=== PATIENT | female | born 1980 | race Two or more races ===

== ENCOUNTER 2023-06-09 08:08 | Inpatient (IN) | payer OTHER ==
[2023-06-09] MEDS ORDERED: ACETAMINOPHEN INJECTION 100 ML IVPB ONE ×2 (09:15→17:23)
[2023-06-09] MEDS: ACETAMINOPHEN 1000 MG/100 ML BAG IVPB ONE (09:25)
[2023-06-09] MEDS: SODIUM CHLORIDE 0.9% 500 ML INFUS.BAG IV ONE (09:25)
[2023-06-09 09:33] LABS: BASO % 0.5 % (0-2.0); EOS % 1.5 % (0-4.5); HEMATOCRIT 39.6 % (32.4-45.2); HEMOGLOBIN 13.5 GM/dL (10.7-15.3); LYMPH % 19.9 % (8-40); MCH 26.3 pg (25.7-33.7); MCHC 34.1 g/dl (32.0-36.0); MEAN CELL VOLUME 77.3 fl (80-96); MEAN PLT VOLUME 8.2 fl (7.5-11.1); MONO % 5.9 % (3.8-10.2); NEUT % 72.2 % (42.8-82.8); PLATELET COUNT 404 10^3/uL (134-434); RBC 5.12 M/mm3 (3.60-5.2); RDW 16.1 % (11.6-15.6); WHITE BLOOD COUNT 12.3 K/mm3 (4.0-10.0)
[2023-06-09 09:40] LABS: INR 1.12 (0.83-1.09)
[2023-06-09 09:49] LABS: POTASSIUM 4.6 mmol/L (3.5-5.1)
[2023-06-09 09:52] LABS: CALCIUM 9.3 mg/dL (8.5-10.1)
[2023-06-09 09:53] LABS: ALBUMIN 3.6 g/dl (3.4-5.0); BLOOD UREA NITROGEN 9.9 mg/dL (7-18)
[2023-06-09 09:55] LABS: CREATININE 0.5 mg/dL (0.55-1.3)
[2023-06-09 09:56] LABS: BILIRUBIN,TOTAL 0.7 mg/dL (0.2-1); TOT PROT 7.5 g/dl (6.4-8.2)
[2023-06-09 10:37] LABS: ACTIVATED PTT 31.1 SECONDS (25.2-36.5)
[2023-06-09] MEDS ORDERED: SODIUM CHLORIDE 0.45%/POT 20 MEQ/1,000 ML INFUS.BAG IV SCH (15:00)
[2023-06-09] MEDS: ACETAMINOPHEN 1000 MG/100 ML BAG IVPB PRN (17:30)
[2023-06-09] MEDS: POTASSIUM CHLORIDE 10 MEQ in SODIUM CHLORIDE 0.45% 1,000 ML IVPB SCH (19:50)
[2023-06-09 20:27] LABS: EPI CELLS 12 /uL (0-25.1); HYALINE CASTS 1 /uL (0-3.1); PH,URINE 5.5 (5.0-8.0); URINE APPEARANCE CLEAR; URINE BACTERIA 512 /uL (0-1359); URINE BILIRUBIN NEGATIVE (NEGATIVE); URINE COLOR YELLOW; URINE GLUCOSE (UA) NEGATIVE (NEGATIVE); URINE KETONE NEGATIVE (NEGATIVE); URINE LEUK ESTERASE 1+ (NEGATIVE); URINE NITRITE NEGATIVE (NEGATIVE); URINE PROTEIN NEGATIVE (NEGATIVE); URINE UROBILINOGEN 0.2 mg/dL (0.2-1.0); URINE WBC 112 /uL (0-25.8)
[2023-06-09 21:24] LABS: URINE RBC NONE SEEN /uL (0-23.9); YEAST NONE SEEN (NEGATIVE)
[2023-06-10 00:44] VITALS: BMI 34.2
[2023-06-10] MEDS ORDERED: MIDAZOLAM HCL 2 MG/2 ML SINGLE DOSE VIAL ONE (09:45)
[2023-06-10] MEDS ORDERED: DEXAMETHASONE SOD PHOSPHATE 4 MG/1 ML VIAL ONE (09:45)
[2023-06-10] MEDS ORDERED: ROCURONIUM BROMIDE 50 MG/5 ML SYRINGE ONE (09:45)
[2023-06-10] MEDS ORDERED: ONDANSETRON 4 MG/2 ML VIAL ONE (09:45)
[2023-06-10] MEDS ORDERED: PROPOFOL 20 ML ONE (09:45)
[2023-06-10] MEDS ORDERED: LIDOCAINE HCL/PF 2% SDV 5ML VIAL ONE (09:45)
[2023-06-10] MEDS ORDERED: BUPIVACAINE HCL/PF 0.25% (2.5MG/ML) 10 ML VIAL ONE (10:04)
[2023-06-10] MEDS ORDERED: KETOROLAC TROMETHAMINE 30 MG/1 ML VIAL ONE (10:59)
[2023-06-10] MEDS ORDERED: GLYCOPYRROLATE 0.2 MG/1 ML VIAL ONE (11:01)
[2023-06-10] MEDS ORDERED: NEOSTIGMINE METHYLSULFATE 0.5 MG/1 ML - 10 ML MDV ONE (11:01)
[2023-06-10] MEDS ORDERED: PROMETHAZINE HCL 25 MG/1 ML VIAL IVPB PRN ×2 (11:09→11:49)
[2023-06-10] MEDS ORDERED: ONDANSETRON 4 MG/2 ML VIAL IVPUSH PRN (11:09)
[2023-06-10] MEDS: ACETAMINOPHEN 1000 MG/100 ML BAG IVPB ONE ×2 (11:30→12:53)
[2023-06-10] MEDS ORDERED: ACETAMINOPHEN 1000 MG/100 ML BAG IVPB PRN (11:49)
[2023-06-10] MEDS: ONDANSETRON 4 MG/2 ML VIAL IVPUSH PRN (12:10)
[2023-06-10] MEDS: LACTATED RINGERS SOLUTION 1,000 ML IV SCH ×2 (12:38→12:53)
[2023-06-10] MEDS: CEFTRIAXONE 1 GM in DEXTROSE 5%-WATER - 50 ML IVPB SCH (12:49)
[2023-06-10 12:57] VITALS: BP 123/74; PULSE 69; RESP 18; TEMP 98
[2023-06-10 13:18] LABS: BASO % 0.3 % (0-2.0); EOS % 0.1 % (0-4.5); HEMATOCRIT 37.5 % (32.4-45.2); HEMOGLOBIN 12.4 GM/dL (10.7-15.3); LYMPH % 12.4 % (8-40); MCH 25.5 pg (25.7-33.7); MEAN CELL VOLUME 77.3 fl (80-96); MONO % 1.3 % (3.8-10.2); NEUT % 85.9 % (42.8-82.8); PLATELET COUNT 376 10^3/uL (134-434); RBC 4.86 M/mm3 (3.60-5.2); RDW 15.9 % (11.6-15.6)
[2023-06-10 13:50] LABS: POTASSIUM 4.2 mmol/L (3.5-5.1)
[2023-06-10 13:52] LABS: CALCIUM 8.7 mg/dL (8.5-10.1)
[2023-06-10 13:53] LABS: ALBUMIN 3.3 g/dl (3.4-5.0); BLOOD UREA NITROGEN 5.9 mg/dL (7-18)
[2023-06-10 13:56] LABS: PHOSPHOROUS 3.3 mg/dL (2.5-4.9); TOT PROT 6.9 g/dl (6.4-8.2)
[2023-06-10 13:57] LABS: BILIRUBIN,TOTAL 0.6 mg/dL (0.2-1)
[2023-06-10 14:08] LABS: CREATININE 0.5 mg/dL (0.55-1.3)
== END 2023-06-10 19:43 | disposition home or self-care (01) | DRG 263 ==
LOC: JER 08:08 → JERBED 14:57 → J7W 06-10 00:28 → J6S 06-10 03:21
PROVIDERS: ADMIT Internal Medicine; ATTEND Internal Medicine
PROC: 0FT44ZZ Resection of Gallbladder, Percutaneous Endoscopic Approach (ICD-10-PCS; principal; 2023-06-10 10:11)
DX: K81.0 Acute cholecystitis (principal); R16.0 Hepatomegaly, not elsewhere classified; N39.0 Urinary tract infection, site not specified
CPT/HCPCS: 36415; 71046-TC-FY; 74176-TC; 76705-TC; 80053; 81003; 83690; 83735; 84100; 84443; 84484; 84703; 85025; 85610; 85730; 86850; 86900; 86901; 87086; 88304-TC; 93005; 93010; 94010; 94760; 99285-25; J0131